=== PATIENT | male | born 1960 | race Caucasian/White ===

== ENCOUNTER 2018-08-01 03:19 | Emergency (ER) | payer SELFPAY ==
[~2018-08-01] VITALS: Ht 182.9 cm; Wt 77.3 kg
[2018-08-01 03:22] VITALS: TEMP 99.2
[2018-08-01] MEDS ORDERED: CEPHALEXIN500 M1 PO (05:15)
[2018-08-01 06:13] VITALS: BP 130/91; PULSE 66
== END 2018-08-01 06:27 | disposition home or self-care (01) ==
LOC: COL.ER 03:19
DX: L89.899 Pressure ulcer of other site, unspecified stage (principal); F17.210 Nicotine dependence, cigarettes, uncomplicated; Z59.0 Homelessness